=== PATIENT | female | born 1995 | race Hispanic/Latino ===

== ENCOUNTER 2018-07-12 21:01 | Inpatient (IN) | payer MEDICAID ==
[2018-07-12] MEDS ORDERED: LACTATED RINGERS 1,000 ML IV SCH (22:00)
[2018-07-12 23:36] LABS: Bacteria,Urine 1+ /HPF (Negative); Bilirubin,Urine NEG (Negative); Blood,Urine NEG (Negative); Color,Urine Yellow (Yellow); Mucus,Urine FEW /HPF; Protein,Urine <15 mg/dL mg/dL (Negative); Urobilinogen,Urine < 2.0 mg/dL (<2.0)
[2018-07-12 23:43] LABS: Hematocrit 31.2 % (30.3-42.9); Hemoglobin 9.6 gm/dl (10.1-14.3); Mean Corpuscular HGB Conc 31 % (30-34); Mean Corpuscular Volume 83 fl (79-97); Platelet Count 298 K/mm3 (140-440); Red Blood Count 3.77 M/mm3 (3.65-5.03); Red Cell Distribution Width 16.3 % (13.2-15.2)
[2018-07-12 23:44] LABS: Lymphocytes % (Auto) 18.8 % (13.4-35.0)
[2018-07-12] MEDS ORDERED: MINERAL OIL PO PRN (23:44)
[2018-07-12] MEDS ORDERED: SUBLIMAZE IV PRN (23:44)
[2018-07-12] MEDS ORDERED: XYLOCAINE 2% INFILTRATI ONE (23:44)
[2018-07-12] MEDS ORDERED: BRETHINE SUB-Q PRN (23:44)
[2018-07-12] MEDS ORDERED: BRETHINE IVP PRN (23:44)
[2018-07-12 23:45] LABS: Basophils % (Auto) 0.1 % (0.0-1.8); Eosinophils % (Auto) 0.5 % (0.0-4.3); Lymphocytes # (Auto) 2.7 K/mm3 (1.2-5.4); Monocytes # (Auto) 1.1 K/mm3 (0.0-0.8); Monocytes % (Auto) 7.7 % (0.0-7.3)
[2018-07-12 23:46] LABS: Eosinophils # (Auto) 0.1 K/mm3 (0.0-0.4)
[2018-07-12] MEDS: LACTATED RINGERS 1,000 ML IV SCH (23:53)
[2018-07-13 00:13] LABS: Hematocrit 27.6 % (30.3-42.9); Hemoglobin 8.9 gm/dl (10.1-14.3)
[2018-07-13] MEDS ORDERED: LIDOCAINE 1.5%/EPI 1:200,000 INFILTRATI ONE (00:23)
[2018-07-13] MEDS ORDERED: NARCAN 2 MG/2 ML IV PRN (00:47)
[2018-07-13] MEDS ORDERED: fentaNYL-BUPIV 2 MCG/ML-0.125% 200 MCG/100 ML BAG EPIDURAL ONE (00:49)
--- NOTE | 2018-07-13 00:49 | Anesthesia Consultation ---
Anesthesia Consult and Med Hx - Airway Anesthetic Teeth Evaluation: Good ROM Head & Neck: Adequate Mental/Hyoid Distance: Adequate Mallampati Class: Class I Intubation Access Assessment: Good - Pulmonary Exam CTA: Yes - Cardiac Exam Cardiac Exam: RRR - Pre-Operative Health Status ASA Pre-Surgery Classification: ASA2 Proposed Anesthetic Plan: Epidural - Pulmonary Hx Smoking: No Hx Asthma: No - Cardiovascular System Hx Hypertension: No - Central Nervous System Hx Seizures: No Hx Psychiatric Problems: Yes (DEPRESSION) - Endocrine Hx Renal Disease: No Hx Hypothyroidism: No Hx Hyperthyroidism: No - Hematic Hx Anemia: Yes Hx Sickle Cell Disease: No - Other Systems Hx Alcohol Use: No
--- NOTE | 2018-07-13 00:50 | Anesthesia Day of Surgery ---
Anesthesia Day of Surgery - Day of Surgery Patient Examined: Yes Patient H&P Reviewed: Yes Patient is NPO: Yes Beta Blockers: No Cardiac Clearance: No Pulmonary Clearance: No Dhiraj's Test: N/A
[2018-07-13] MEDS ORDERED: fentaNYL-BUPIV 2 MCG/ML-0.125% 200 MCG/100 ML BAG EPIDURAL SCH (01:00)
[2018-07-13] MEDS: LACTATED RINGERS 1,000 ML IV SCH ×3 (02:39→08:20)
--- NOTE | 2018-07-13 06:13 | History and Physical Report ---
History of Present Illness Date of examination: 07/13/18 Date of admission: 07/12/18 23:16 Chief complaint: contractions History of present illness: 23y/o @ 40+0 weeks presents in active labor with 4cm dilated with evidence of cervical change. Patient initiated care at 9 weeks ega. course has been uncomplicated. GBS negative. Past History Past Medical History: no pertinent history Past Surgical History: no surgical history Social history: - Obstetrical History Expected Date of Delivery: 07/13/18 Actual Gestation: 40 Week(s) 0 Day(s) : 1 Para: 0 Hx # Term Pregnancies: 0 Number of Pregnancies: 0 Spontaneous Abortions: 0 Induced : 0 Number of Living Children: 0 Medications and Allergies Allergies Allergy/AdvReac Type Severity Reaction Status Date / Time hydrocodone Allergy Itching Verified 07/12/18 21:44 Active Meds: Active Medications Ephedrine Sulfate (Ephedrine Sulfate) 10 mg IV Q2M PRN PRN Reason: Hypotension Last Admin: 07/13/18 03:07 Dose: 10 mg Documented by: Ephedrine Sulfate (Ephedrine Sulfate) 10 mg IV Q2M PRN PRN Reason: Hypotension Fentanyl (Sublimaze) 100 mcg IV Q2H PRN PRN Reason: Labor Pain Last Admin: 07/12/18 23:53 Dose: 100 mcg Documented by: Lactated Ringer's (Lactated Ringers) 1,000 mls @ 125 mls/hr IV DIRECT TIERRA Last Admin: 07/13/18 02:39 Dose: 125 mls/hr Documented by: Oxytocin/Sodium Chloride (Pitocin/Ns 20 Unit/1000ml Drip) 20 units in 1,000 mls @ 125 mls/hr IV DIRECT TIERRA Fentanyl/Bupivacaine/Sodium Chlor (Fentanyl-Bupiv 2 Mcg/Ml-0.125%) 200 mcg in 100 mls @ 12 mls/hr EPIDURAL TITR TIERRA; Protocol Mineral Oil (Mineral Oil) 30 ml PO QHS PRN PRN Reason: Constipation Naloxone HCl (Narcan 2 Mg/2 Ml) 0.2 mg IV Q5M PRN PRN Reason: Respiratory sedation Terbutaline Sulfate (Brethine) 0.25 mg SUB-Q ONCE PRN PRN Reason: Hyperstimulation/Hypertonicity Terbutaline Sulfate (Brethine) 0.25 mg IVP ONCE PRN PRN Reason: Hyperstimulation/Hypertonicity Review of Systems All systems: negative Genitourinary: leakage of fluid, contractions - Vital Signs Vital signs: Vital Signs Temp Pulse Resp BP 98.2 F 102 H 20 128/77 07/12/18 21:24 07/12/18 21:24 07/12/18 21:24 07/12/18 21:24 Temp Pulse Resp BP Pulse Ox 98.9 F 103 H 18 110/62 96 07/13/18 04:30 07/13/18 06:00 07/13/18 04:30 07/13/18 06:00 07/13/18 04:22 - Physical Exam Breasts: Positive: deferred Cardiovascular: Regular rate Lungs: Positive: Clear to auscultation Abdomen: Positive: normal appearance Results Result Diagrams: 07/13/18 00:02 Abnormal lab results 07/12/18 07/12/18 07/13/18 Range/Units 23:09 23:09 00:02 WBC 14.3 H (4.5-11.0) K/mm3 Hgb 9.6 L 8.9 L (10.1-14.3) gm/dl Hct 27.6 L (30.3-42.9) % MCH 25 L (28-32) pg RDW 16.3 H (13.2-15.2) % Anson % (Auto) 7.7 H (0.0-7.3) % Anson # 1.1 H (0.0-0.8) K/mm3 Seg Neutrophils % 72.9 H (40.0-70.0) % Seg Neutrophils # 10.4 H (1.8-7.7) K/mm3 Urine WBC (Auto) 47.0 H (0.0-6.0) /HPF U Epithel Cells (Auto) 58.0 H (0-13.0) /HPF All other labs normal. Assessment and Plan - Patient Problems (1) Active labor at term Current Visit: Yes Status: Acute Plan to address problem: admit to L&D
[2018-07-13] MEDS ORDERED: PITOCin/NS 30 UNIT/500ML 30 UNITS/500 ML BAG IV SCH (07:00)
[2018-07-13] MEDS ORDERED: PEPCID IV ONE (08:10)
[2018-07-13] MEDS ORDERED: REGLAN ONE (08:10)
[2018-07-13] MEDS ORDERED: XYLOCAINE 2% INFILTRATI ONE (09:31)
[2018-07-13] MEDS: PITOCin/NS 20 UNIT/1000ML DRIP 20 UNITS/1,000 ML BAG IV SCH ×2 (09:34→11:07)
--- NOTE | 2018-07-13 09:55 | Procedure Note ---
OB Delivery Note - Delivery Date of Delivery: 07/13/18 Surgeon: STEVEN HAYES Estimated blood loss: 500cc - Vaginal Delivery presentation: vertex Delivery position: OA Intrapartum events: meconium, mult.variable deceleratio Delivery induction: none Delivery augmentation: pitocin Route of delivery: vacuum extraction Indicators for instrumentation: nonreassuring FHR tracing Delivery placenta: spontaneous Delivery cord: nuchal cord, 3 umbilical vessels Episiotomy: none Delivery laceration: 2nd degree Delivery repair: vicryl Anesthesia: epidural Delivery comments: Patient was noted to be c/c/ +2 and commenced to pushing a viable female at 923 delivered with assistance of vacuum with easily delivery of shoulders. Patient delivered easily with one push and no pop offs ( the vacuum max was in green zone) Nuchal cord easily reduced prior to delivery. The baby placed on mom chest with peds in attendance. the naso and orophayrnx suctioned. The cord was clamped and cut and handed to awaiting Peds team. The placenta delivered intact with 3 vessel cord at 926. the 2nd degree lac repaired in usual fashion with 2-0 vicryl. Patient tolerated procedure well. Apgars 8 and 9. EBL 500 cc. Patient tolerated procedure well - Infant A at 1 minute: 8 at 5 minutes: 9 Infant Gender: Female (8 pounds 0.6 oz)
[2018-07-13] MEDS ORDERED: NORCO 5/325 PO PRN (09:57)
[2018-07-13] MEDS ORDERED: ZOFRAN IV PRN (09:57)
[2018-07-13] MEDS ORDERED: ANUCORT-HC PR PRN (09:57)
[2018-07-13] MEDS ORDERED: LANSINOH TP PRN (09:57)
[2018-07-13] MEDS ORDERED: BENADRYL PO PRN (09:57)
[2018-07-13] MEDS ORDERED: MILK OF MAGNESIA PO PRN (09:57)
[2018-07-13] MEDS ORDERED: TUCKS PAD TP PRN (09:57)
[2018-07-13] MEDS ORDERED: PERCOCET 5/325 PO PRN (09:57)
[2018-07-13] MEDS ORDERED: DULCOLAX PR PRN (09:57)
[2018-07-13] MEDS ORDERED: PHENERGAN PO PRN (09:57)
[2018-07-13] MEDS ORDERED: TYLENOL PO PRN (09:57)
[2018-07-13] MEDS ORDERED: PHENERGAN PR PRN (09:57)
[2018-07-13] MEDS ORDERED: ROCEPHIN/NS 1 GM/50 ML 1 GM/50 ML BAG IV SCH (10:00)
[2018-07-13] MEDS ORDERED: PITOCin/NS 20 UNIT/1000ML DRIP 20 UNITS/1,000 ML BAG IV SCH (10:00)
[2018-07-13] MEDS ORDERED: SODIUM CHLORIDE FLUSH SYRINGE 10 ML IV NR (10:00)
[2018-07-13] MEDS ORDERED: PRENATAL VITAMIN PO SCH (11:00)
[2018-07-13] MEDS: IBUPROFEN PO SCH ×3 (12:26→22:43)
[2018-07-13] MEDS: COLACE PO SCH ×2 (12:26→22:44)
[2018-07-13] MEDS: FEOSOL PO SCH ×2 (15:49→20:06)
[2018-07-13 21:35] LABS: Hematocrit 27.5 % (30.3-42.9); Hemoglobin 8.6 gm/dl (10.1-14.3); Mean Corpuscular HGB Conc 31 % (30-34); Mean Corpuscular Volume 84 fl (79-97); Platelet Count 266 K/mm3 (140-440); Red Blood Count 3.27 M/mm3 (3.65-5.03); Red Cell Distribution Width 16.4 % (13.2-15.2)
[2018-07-13 22:19] LABS: Band Neutrophils # (Manual) 0.2 K/mm3; Basophils % (Manual) 0 % (0.0-1.8); Eosinophils % (Manual) 0 % (0.0-4.3); Total Cells Counted 100
[2018-07-13 22:21] LABS: Platelet Estimate Consistent w Auto
[2018-07-13] MEDS: SENOKOT S PO SCH (22:43)
[2018-07-14] MEDS ORDERED: BOOSTRIX IM ONE (06:00)
[2018-07-14] MEDS ORDERED: M-M-R II VACCINE SUB-Q ONE (06:00)
[2018-07-14] MEDS: FEOSOL PO SCH ×3 (08:23→21:30)
[2018-07-14] MEDS: SENOKOT S PO SCH ×2 (09:42→22:55)
[2018-07-14] MEDS: COLACE PO SCH ×2 (09:43→21:31)
[2018-07-14] MEDS: IBUPROFEN PO SCH ×3 (09:44→22:00)
--- NOTE | 2018-07-14 11:22 | Progress Note ---
Assessment and Plan ppd 1 s/p . Doing well. Plan for discharge today if baby able to go. Subjective - Subjective Date of service: 07/14/18 Principal diagnosis: s/p Patient reports: appetite normal, voiding normally, pain well controlled, ambulating normally : doing well Objective - Vital Signs Latest vital signs: Vital Signs Temp Pulse Resp BP BP Pulse Ox 07/14/18 08:21 98.1 F 89 52 H 114/78 98 07/13/18 23:45 98.1 F 94 H 18 109/69 07/13/18 21:35 98.3 F 99 H 20 126/76 07/13/18 15:39 98.0 F 112 H 16 112/66 94 07/13/18 11:25 98.7 F 113 H 18 128/70 Intake and Output 07/13/18 07/14/18 07/14/18 22:59 06:59 14:59 Intake Total 360 480 Output Total 900 900 Balance -540 -420 Intake: Intake, Free Water 360 480 Output: Urine 900 900 Void 900 900 Other: Total, Output Amount 900 900 # Voids Void 1 - Exam Breasts: Present: deferred Cardiovascular: Present: Regular rate, Normal S1, Normal S2 Lungs: Present: Clear to auscultation, Normal air movement Abdomen: Present: normal appearance, soft, normal bowel sounds Vulva: both: normal Uterus: Present: normal, firm Extremities: Present: normal - Labs Labs: Abnormal lab results 07/13/18 Range/Units 19:50 WBC 20.3 H (4.5-11.0) K/mm3 RBC 3.27 L (3.65-5.03) M/mm3 Hgb 8.6 L (10.1-14.3) gm/dl Hct 27.5 L (30.3-42.9) % MCH 26 L (28-32) pg RDW 16.4 H (13.2-15.2) % Seg Neuts % (Manual) 83.0 H (40.0-70.0) % Lymphocytes % (Manual) 12.0 L (13.4-35.0) % Seg Neutrophils # Man 16.8 H (1.8-7.7) K/mm3
[2018-07-15] MEDS: IBUPROFEN PO SCH ×2 (05:54→12:23)
--- NOTE | 2018-07-15 09:19 | Discharge Summary ---
Providers - Providers Date of Admission: 07/12/18 23:16 Date of discharge: 07/15/18 Attending physician: CONSUELO CURRY Primary care physician: CONSUELO CURRY Hospitalization Reason for admission: active labor Delivery: Episiotomy: none Laceration: none complications: none Discharge diagnosis: IUP at term delivered baby: female Hospital course: unremarkable Condition at discharge: Good Disposition: DC-01 TO HOME OR SELFCARE Plan - Discharge Medications Prescriptions: Ibuprofen [Motrin] 600 mg PO Q8H PRN #30 tablet PRN Reason: Pain oxyCODONE /ACETAMINOPHEN [Percocet 5/325] 1 tab PO Q6HR PRN #30 tablet PRN Reason: Pain - Provider Discharge Summary Activity: routine, no sex for 6 weeks, no heavy lifting 4 weeks, no strenuous exercise Diet: routine Instructions: routine Additional instructions: [] Smoking cessation referral if applicable(refer to patient education folder for contact #) [] Refer to [facility] Booklet Call your doctor immediately for: * Fever > 100.5 * Heavy vaginal bleeding ( >1 pad per hour) * Severe persistent headache * Shortness of breath * Reddened, hot, painful area to leg or breast * Drainage or odor from incision. * Keep incision clean and dry at all times and follow doctor's instructions regarding bathing/showering - Follow up plan Follow up: CONSUELO CURRY MD [Primary Care Provider] - 6 Weeks Forms: [facility] Discharge Summary, Discharge Signature Page
[2018-07-15] MEDS ORDERED: BOOSTRIX IM ONE (12:05)
[2018-07-15 15:28] VITALS: BP 112/72
== END 2018-07-15 12:49 | disposition home or self-care (01) | DRG 775 ==
LOC: TRG 21:01 → LD 23:16 → OB 07-13 11:12
PROVIDERS: ADMIT Obstetrics & Gynecology; ATTEND Obstetrics & Gynecology
PROC: 10D07Z6 Extraction of Products of Conception, Vacuum, Via Natural or Artificial Opening (ICD-10-PCS; principal; 2018-07-13)
PROC: 0KQM0ZZ Repair Perineum Muscle, Open Approach (ICD-10-PCS; 2018-07-13)
PROC: 3E0R3BZ Introduction of Anesthetic Agent into Spinal Canal, Percutaneous Approach (ICD-10-PCS; 2018-07-13)
PROC: 00HU33Z Insertion of Infusion Device into Spinal Canal, Percutaneous Approach (ICD-10-PCS; 2018-07-13)
PROC: 3E0234Z Introduction of Serum, Toxoid and Vaccine into Muscle, Percutaneous Approach (ICD-10-PCS; 2018-07-14)
DX: O76 Abnormality in fetal heart rate and rhythm complicating labor and delivery (principal); O77.0 Labor and delivery complicated by meconium in amniotic fluid; O69.81X0 Labor and delivery complicated by cord around neck, without compression, not applicable or unspecified; O70.1 Second degree perineal laceration during delivery; O99.344 Other mental disorders complicating childbirth; F32.9 Major depressive disorder, single episode, unspecified; Z88.5 Allergy status to narcotic agent; Z3A.40 40 weeks gestation of pregnancy; Z37.0 Single live birth; Z23 Encounter for immunization
CPT/HCPCS: 36415; 81001; 85007; 85014; 85018; 85025; 86592; 86850; 86900; 86901; 88305; 88307; 90715; G0378; J0696; J2590; J2765; J3010; J7120